=== PATIENT | male | born 1975 | race Caucasian/White ===

== ENCOUNTER 2016-06-10 14:45 | Inpatient (IN) | payer OTHER ==
[~2016-06-10] VITALS: Ht 182.9 cm; Wt 99.8 kg
[~2016-06-10 14:45] MED LIST: CARAFATE 1GM1000 MG PO; PROTONIX 40MG T40 MG PO
[2016-06-10 15:38] LABS: ABSOLUTE BASOPHIL COUNT 0 /CUMM (0.0-0.2); ABSOLUTE EOSINOPHIL COUNT 0.1 /CUMM (0.0-0.7); ABSOLUTE GRANULOCYTE CT 5.2 /CUMM (1.4-6.5); ABSOLUTE LYMPH COUNT 1.8 /CUMM (1.2-3.4); ABSOLUTE MONOCYTE COUNT 0.8 /CUMM (0.10-0.60); BASOPHIL % 0.3 % (0.0-2.0); EOSINOPHIL % 1.7 % (0-5); GRANULOCYTE % 65.3 % (42.2-75.2); HEMATOCRIT 47.1 % (42-52); MEAN CORPUSCULAR HGB 31.5 PG (27.0-31.0); MEAN CORPUSCULAR HGB CONC 34.7 G/DL (33.0-37.0); MEAN CORPUSCULAR VOLUME 90.8 FL (80.0-94.0); MEAN PLATELET VOLUME 8.4 FL (7.4-10.4); PLATELET COUNT 196 /CUMM (130-400); RBC DISTRIBUTION WIDTH 12.4 % (11.5-14.5); RED BLOOD CELL CT 5.19 /CUMM (4.70-6.10)
--- NOTE | 2016-06-10 17:19 | ED NEURO DEFICIT/STROKE ---
History of Present Illness General Chief Complaint: General Adult Stated Complaint: NUMBNESS LEGS,WAIST X 6 DAYS Source: patient Exam Limitations: no limitations Vital Signs & Intake/Output Vital Signs & Intake/Output Vital Signs Date Time Temp Pulse Resp B/P Pulse O2 O2 Flow FiO2 Ox Delivery Rate 06/13 0756 97.6 80 19 132/94 94 Room Air 06/13 0030 97.8 94 20 132/97 92 06/12 1643 98.1 120 22 148/80 92 06/12 1400 97.8 80 18 130/70 ED Intake and Output 06/13 0000 06/12 1200 Intake Total 1390 540 Output Total 300 Balance 1090 540 Intake, IV 750 Intake, Oral 640 540 Output, Urine 300 Allergies Coded Allergies: No Known Allergies (07/17/15) Triage Note: PT STATES HE IS HAVING NUMBNESS GOING FROM HIS BIG TO AND GOING UP HIS LEGS. PT STATES ITS BOTH LEGS NOW UP INTO HIS WAIST. PT STATES HE WENT TO PCP YESTERDAY. PT STATES HIS MOTHER HAD TOLU LAN Triage Nurses Notes Reviewed? yes Onset: Gradual Duration: getting worse Timing: recent history Severity: severe New Weakness: ascending HPI: Patient is a 41-year-old male with a past medical history of hyperlipidemia who presents to emergency room stating that approximates 6 weeks ago he was having complaints of upper respiratory infection symptoms in which for approximately one month history symptoms persisted he followed up with his primary care doctor 2 weeks ago was given antibiotics and symptoms have been relieved. Patient does state that 6 days ago he noted a gradual onset of right lower extremity toe paresthesia that has radiated up his right leg and then his left leg and now complains of complete numbness from his waist down to his bilateral feet. Patient was evaluated yesterday by his primary care Dr. Baumann in which blood work was sent no medications were given. Patient denies any fever chills chest pain arm pain jaw pain nausea vomiting testicular swelling or pain. Patient still is in control of his bowel and bladder and denies any incontinence episodes. Patient also denies any active pain or lower extremity pain swelling or weakness however he does state while walking it just feels "weird" Concerns that his mother had GBS syndrome (RAVIN DUMONT,STORMY) Reconcile Medications Fenofibrate Nanocrystallized (Fenofibrate) 145 MG TABLET 1 TAB PO DAILY CHOLESTEROL (Reported) Prednisone 10 MG TABLET 0 PO SI MULTIPLE SCLEROSIS 06/15/16-06/20/16 TAKE 6 TABS DAILY 06/21/16 TAKE 5 TABS DAILY 06/22/16 TAKE 4 TABS DAILY 06/23/16 TAKE 3 TABS DAILY 06/24/16 TAKE 2 TABS DAILY 06/25/16 TAKE 1 TAB DAILY THEN STOP (COTY MONTES,VAISHNAVI Horowitz) Past History Travel History Traveled to [place] past 21 day No Medical History Any Pertinent Medical History? see below for history Cardiovascular: hyperlipidemia Psychiatric: anxiety, panic attacks Surgical History Surgical History: non-contributory, N Psychosocial History What is your primary language [place] Tobacco Use: Never used ETOH Use: denies use Illicit Drug Use: denies illicit drug use Family History Hx Contributory? No (STORMY JIMENES) Review of Systems Review of Systems Constitutional: Reports: no symptoms. EENTM: Reports: no symptoms. Respiratory: Reports: no symptoms. Cardiovascular: Reports: no symptoms. GI: Reports: no symptoms. Genitourinary: Reports: no symptoms. Musculoskeletal: Reports: no symptoms. Skin: Reports: no symptoms. Neurological/Psychological: Reports: see HPI, paresthesia. Hematologic/Endocrine: Reports: no symptoms. Immunologic/Allergic: Reports: no symptoms. All Other Systems: Reviewed and Negative (STORMY JIMENES) Physical Exam Physical Exam General Appearance: no apparent distress, alert, comfortable Cranial Nerves: normal hearing, normal speech, PERRL Comments: Well-developed well-nourished person in no acute distress HEENT: Normal EENT exam, extraocular motion intact, no nystagmus. Pupils equally round and reactive to light and accommodation. Nose is atraumatic. External auditory canal and Tympanic membranes clear. Pharynx normal. No swelling or edema. Neck: Supple, no lymphadenopathy, normal range of motion without pain or tenderness Back: Nontender, no CVA tenderness. Cardiovascular: Regular rate and rhythms no murmurs rubs or gallops, normal JVP Respiratory: Chest nontender. No respiratory distress.breath sounds clear to auscultation bilaterally Abdomen: Soft, nontender nondistended, no appreciable organomegaly. Normal bowel sounds. No ascites Extremity: No edema, no calf tenderness to palpation, normal and equal pulses. Neuro: Alert oriented x3, Lower extremity-generalized decreased dermatome sensation noted 5 out of 5 resisted range of motion in all extremities noted myotomes intact of all extremities DTRs intact - hyperreflexive Skin: No appreciable rash on exposed skin, skin is warm and dry. Psych: Mood and affect is normal, memory and judgment is normal. Core Measures CVA/TIA Diagnosis: No Severe Sepsis Present: No Septic Shock Present: No (RAVIN DUMONT,STORMY) Progress Differential Diagnosis: drug intoxication, electrolyte imbalance, encephalitis, intracranial Hem., intracranial mass/tumor, meningitis, migraine CASTILLO, seizure disorder, stroke, subarachnoid Hem., vertebrobasilar insuff., TRANSVERSE MYELITIS, SPINAL ABSCESS, HERNIATED DISC OF THE LUMBAR SPINE, gbs, NEUROPATHY, MULTIPLE SCLEROSIS, NEUROMUSCULAR JUNCTION DISORDER, POLYNEUROPATHY Plan of Care: Orders Procedure Date/time Status Anticipated Discharge 06/14 UNK Active Nursing Misc 06/13 UNK Active Current Medications Sig/Jarrod Start time Last Medication Dose Stop Time Status Admin Acetaminophen 650 MG Q6P PRN 06/10 2044 AC (Tylenol) Patient currently is in no apparent distress. Patient does present with significant and concerning symptoms of worsening ascending bilateral lower extremity paresthesia however patient has intact myotomes and dermatomes at this time. Rectal tone is intact. Patient had unremarkable CT scan however patient is concerning enough that he was advised to be admitted for evaluation of his symptoms and received an MRI possible lumbar puncture and neurology consultation and frequent neurological checks. 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 DE LEON who is aware and agrees with ER disposition and plan (RAVIN DUMONT,STORMY) Diagnostic Imaging: Viewed by Me: CT Scan. Radiology Impression: SEE COMMENTS Initial ED EKG: normal p-waves, normal QRS complex, normal sinus rhythm, NORMAL SINUS RHYTHM 80 BPM Comments: PATIENT: LAURA SOLIS PRESENT AGE: 41 PATIENT ACCOUNT NO: [id number] : 73 LOCATION: [facility] ORDERING PHYSICIAN: STORMY DUMONT SERVICE DATE: 06/10/16 EXAM TYPE: CAT - CT LUMB SPINE W IV CONTRAST CT LUMBAR SPINE WITH CONTRAST CLINICAL INFORMATION: Bilateral leg paresthesias to rule out transverse myelitis. COMPARISON: None available. TECHNIQUE: A CT acquisition of the lumbar spine is obtained following the administration of 95 mL of Optiray 320 intravenous contrast. FINDINGS: 5 nonrib-bearing lumbar-type vertebral bodies. Lumbar alignment is normal. There are no acute fractures and there are no acute subluxations. Vertebral body heights are maintained. No osteolytic and no osteoblastic lesions. Disc spaces are preserved. There is mild disc calcification at L1-L2. There are no significant soft tissue findings. At L2-L3 there is a right lateral disc protrusion that may abut the extraforaminal right L2 nerve root. At L4-L5 there is a diffuse annular disc bulge with a possible superimposed shallow central disc protrusion. Suspect mild narrowing of the central canal. Moderate foraminal stenosis bilaterally. Disc may abut the traversing nerve roots, not well assessed on CT. The remaining lumbar disc contours appear normal. IMPRESSION: - CT is not diagnostic for assessing for abnormal enhancement within the spinal cord and along the cauda equina nerve roots. If clinical suspicion persists for transverse myelitis, a MRI of the spine would be recommended for further assessment. - At L4-L5 there is a diffuse annular disc bulge with a possible superimposed shallow central disc protrusion. Suspect mild narrowing of the central canal. Moderate foraminal stenosis bilaterally. Disc may abut the traversing nerve roots, not well assessed on CT. - At L2-L3 there is a right lateral disc protrusion that may abut the extraforaminal right L2 nerve root. (STORMY JIMENES) Departure Departure Disposition: STILL A PATIENT Condition: Fair Clinical Impression Primary Impression: Distal paresthesia Referrals: KENYA HAYWARD MD (PCP/Family) Departure Forms: Customer Survey General Discharge Information Admission Note Spoke With: BRYAN FRAGA MD Documentation of Exam: Documentation of any treatments & extenuating circumstances including Concerns Regarding Discharge (functional status, medication knowledge or non-compliance, living conditions, etc.) that warrant an admission rather than observation: [ Discussed patient with Dr. FRAGA who agrees with telemetry admission for concerns of worsening A sending paresthesia of the legs who requires neurology consultation, MRI, lumbar puncture, frequent neurological checks and further evaluation treatment of his concerning presentation. Outpatient treatment at this time would be medically harmful] (STORMY JIMENES) Departure Prescriptions: Current Visit Scripts Prednisone 0 PO SI #87 TAB 06/15/16-06/20/16 TAKE 6 TABS DAILY 06/21/16 TAKE 5 TABS DAILY 06/22/16 TAKE 4 TABS DAILY 06/23/16 TAKE 3 TABS DAILY 06/24/16 TAKE 2 TABS DAILY 06/25/16 TAKE 1 TAB DAILY THEN STOP PA/MINE ENVIRONMENTAL ENGINEER Co-Sign Statement Statement: ED Attending supervision documentation- [] I saw and evaluated the patient. I have also reviewed all the pertinent lab results and diagnostic results. I agree with the findings and the plan of care as documented in the PA's/MINE ENVIRONMENTAL ENGINEER's documentation. [x] I have reviewed the ED Record and agree with the PA's/MINE ENVIRONMENTAL ENGINEER's documentation. [] Additions or exceptions (if any) to the PAs/MINE ENVIRONMENTAL ENGINEER's note and plan are summarized below: [] (COTY MONTES,VAISHNAVI Horowitz)
--- NOTE | 2016-06-10 18:08 | CT SCAN REPORT ---
CT LUMBAR SPINE WITH CONTRAST CLINICAL INFORMATION: Bilateral leg paresthesias to rule out transverse myelitis. COMPARISON: None available. TECHNIQUE: A CT acquisition of the lumbar spine is obtained following the administration of 95 mL of Optiray 320 intravenous contrast. FINDINGS: 5 nonrib-bearing lumbar-type vertebral bodies. Lumbar alignment is normal. There are no acute fractures and there are no acute subluxations. Vertebral body heights are maintained. No osteolytic and no osteoblastic lesions. Disc spaces are preserved. There is mild disc calcification at L1-L2. There are no significant soft tissue findings. At L2-L3 there is a right lateral disc protrusion that may abut the extraforaminal right L2 nerve root. At L4-L5 there is a diffuse annular disc bulge with a possible superimposed shallow central disc protrusion. Suspect mild narrowing of the central canal. Moderate foraminal stenosis bilaterally. Disc may abut the traversing nerve roots, not well assessed on CT. The remaining lumbar disc contours appear normal. IMPRESSION: - CT is not diagnostic for assessing for abnormal enhancement within the spinal cord and along the cauda equina nerve roots. If clinical suspicion persists for transverse myelitis, a MRI of the spine would be recommended for further assessment. - At L4-L5 there is a diffuse annular disc bulge with a possible superimposed shallow central disc protrusion. Suspect mild narrowing of the central canal. Moderate foraminal stenosis bilaterally. Disc may abut the traversing nerve roots, not well assessed on CT. - At L2-L3 there is a right lateral disc protrusion that may abut the extraforaminal right L2 nerve root.
[2016-06-10] MEDS ORDERED: FENOFIBRATE145 M1 PO (19:31)
[2016-06-10 22:05] VITALS: BP 130/80
--- NOTE | 2016-06-10 22:16 | History & Physical ---
BRITTNI MONTES,JEFF 06/10/16 2215: General Information and HPI MD Statement: I have seen and personally examined LAURA SOLIS and documented this H&P. The patient is a 41 year old M who presented with a patient stated chief complaint of [ascending paresthesias]. Source of Information: patient, family Exam Limitations: no limitations History of Present Illness: This is a 41-year-old gentleman with past medical history of hyperlipidemia, and anxiety, who comes with CC of progressive and ascending paresthesias. Patient states that around 6 weeks ago he experienced symptoms of an upper respiratory infection, the symptoms included body aches, rhinorrhea, cough, congestion. Symptoms lasted for almost 1 month until patient went to see the PCP about 2 weeks ago. At that time he was prescribed a regimen of Augmentin which patient completed. Patient experienced symptoms of diarrhea while he was on the antibiotic. Now, for the past 6 days, patient has noted "pins and needles," tingling and a subjective decreased sensation in his lower extremities. He states that symptoms started in his right great toe and radiated up his right leg subsequently, symptoms started in his left leg and radiated up. Now patient has paresthesias and an altered sensation of touch, waist down. This includes saddle paresthesia. He states that he is able to urinate and defecate normally, however, he is unable to feel the sensation of both actions. Patient had a bowel movement before he came to the ED. Patient is able to attain and maintain erections. Other symptoms noted was an issue with balance. He states that if he does not visualize where he is walking he will fall. Additionally, he states that he is unable to sleep because of the paresthesias. He denies any loss of bowel or bladder control, nausea, vomiting, chest pain, myalgias, arthralgias, dizziness, headache, change in vision, loss of consciousness, fall, or shortness of breath. His partner in the room denies noticing any slurring of speech, facial droop, hemiparesis, or loss of consciousness. He endorses difficulty with walking, tingling, paresthesias, in his lower extremity and an inability to tell if he is urinating or defecating. He does have history of tick bite treated with doxycycline. However, he has never been diagnosed with Lyme disease. He did not get his flu shot this year. Denies any unusual food ingestions. Only sick contact is his daughter who has URI with an ear infection diagnosed on 06/04/2016. The patient denies any smoking , drinking, or IV drug use. However, he does use chewing tobacco. 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 His mother has a history of unknown cancer and Guillain Tiffin sydnrome. Father has unknown history as he committed suicide at a young age. Allergies/Medications Allergies: Coded Allergies: No Known Allergies (07/17/15) Home Med list Fenofibrate Nanocrystallized (Fenofibrate) 145 MG TABLET 1 TAB PO DAILY CHOLESTEROL (Reported) Compliance With Home Meds: UNKNOWN Past History Travel History Traveled to [facility] past 21 day No Medical History Cardiovascular: hyperlipidemia Psychiatric: anxiety, panic attacks Surgical History Surgical History: non-contributory, thora s/p PNA as a child Past Family/Social History Psychosocial History Primary Language: Setswana Smoking Status: Never Smoked ETOH Use: denies use Illicit Drug Use: denies illicit drug use Functional Ability ADLs Independent: dressing, eating, toileting, bathing. Ambulation: independent, cane, walker, non-ambulatory IADLs Independent: shopping, housework, finances, food prep, telephone, transportation , medication admin. Employment History Employment Employed Review of Systems Review of Systems Constitutional: Reports: weakness. Denies: chills, diaphoresis, fever, malaise. EENTM: Denies: blurred vision, double vision, visual changes, eye pain, ear discharge, ear pain, hearing changes, nasal congestion, throat pain, mouth pain, tooth pain. Cardiovascular: Denies: chest pain, edema, orthopena, palpitations, peripheral edema. Respiratory: Denies: cough, orthopnea, short of breath, sputum production, wheezing. GI: Denies: abdominal pain, bloating, constipation, diarrhea, distention, melena, nausea, bloody stool, changes in stool, vomiting. Genitourinary: Denies: discharge, dysuria, frequency, hematuria, hesitation, nocturia, pain, urgency. Musculoskeletal: Denies: back pain, gout, joint pain, joint swelling, muscle pain, muscle stiffness, neck pain. Skin: Denies: change in skin color, change in hair/nails, erythema, jaundice, lesions, lumps, rash. Neurological/Psychological: Reports: anxiety, numbness, paresthesia, tingling. Denies: ataxia, cognitive dysfunction, confusion, depressed, dementia, emotional problems, headache, pre- existing deficit, petit mal seizures, tremors, tonic-clonic seizures, unable to move lower ext, unable to move upper ext, weakness. Hematologic/Endocrine: Denies: bruising, bleeding, polyuria. Exam & Diagnostic Data Last 24 Hrs of Vital Signs/I&O Vital Signs Date Time Temp Pulse Resp B/P Pulse O2 O2 Flow FiO2 Ox Delivery Rate 06/10 2205 98.5 86 20 130/80 94 06/10 1942 97.7 87 18 157/78 96 Room Air 06/10 1652 98.2 88 18 131/74 98 06/10 1455 97.1 105 16 139/96 97 Room Air Intake & Output 06/10 1600 06/10 0800 06/10 0000 Intake Total Output Total Balance Patient 106.594 kg Weight Physical Exam General Appearance Alert, Oriented X3, Cooperative, No Acute Distress Skin No Rashes, No Breakdown, No Significant Lesion HEENT Atraumatic, PERRLA, EOMI, Mucous Membr. moist/pink, CN 2-12 WNL Neck Supple, No LAD Cardiovascular Regular Rate, Normal S1, Normal S2, No Murmurs, Gallops, Rubs Lungs Clear to Auscultation, Normal Air Movement Abdomen Normal Bowel Sounds, Soft, No Tenderness, No Masses Neurological Normal Speech, Strength at 5/5 X4 Ext, Normal Tone, Sensation Intact, Cranial Nerves 3-12 NL, Hyper-reflexia 2+ in LE Nml reflexes 1+ in UE Steppage gait when ambulates + Romberg; deviates to right Strength normal in all extremities Sensation normal in all extremeties Passive ROM nml in all extremeties Active ROM nml in all extremeites Temp discrimination in tact Pain discrimination in tact Rectal tone normal CN 2-12 WNL; no facial droop, no deviation of uvula No cerebellar signs Last 24 Hrs of Labs/Tanmay: Laboratory Tests 06/10/16 1525: Anion Gap 9, Estimated GFR > 60, BUN/Creatinine Ratio 10.9, Glucose 93, Calcium 9.6, Total Bilirubin 0.7, AST 30, ALT 46, Alkaline Phosphatase 58, Creatine Kinase 72, Total Protein 7.2, Albumin 4.3, Globulin 2.9, Albumin/Globulin Ratio 1.5, CBC w Diff NO MAN DIFF REQ, RBC 5.19, MCV 90.8, MCH 31.5 H, RDW 12.4, MPV 8.4, Gran % 65.3, Lymphocytes % 22.2, Monocytes % 10.5 H, Eosinophils % 1.7, Basophils % 0.3, Absolute Granulocytes 5.2, Absolute Lymphocytes 1.8, Absolute Monocytes 0.8 H, Absolute Eosinophils 0.1, Absolute Basophils 0, PUBS MCHC 34.7 , Lyme Disease Antibody Pending Assessment/Plan Assessment: This is a 41-year-old male with past medical history of anxiety and hyperlipidemia who presents with a chief complaint of a ascending paresthesias that started about a week ago and have continued to worsen; in addition, he has no sensation when he urinates or defecates. He denies any previous neurologic history,however there is family history of GBS in his mother. At the present time there is no clear etiology for patient's unusual constellation of symptoms. Differential includes: Guillian Tiffin, transverse myelitis, Multiple sclerosis, myasthenia gravis, chronic inflammation demyelinating neuropathy, stroke, Lyme disease, cord compression, or degenerative disk disease. We will admit him to telemetry for further workup. PLAN Ascending paresthesias: Patient has a family history of GBS and he did have a preceding seemingly viral illness in the past month. However, this be a very unusual presentation of Guillain Pandya. Patient does not have any motor deficits and his sensation is largely intact as well. While pt endorses a decreased subjective sensation to touch on physical exam he is capable of discriminating temperature and touch in both LE. His major complaint is paresthesias and decreased sensation on urinating and defecating. Additionally, he is hyperreflexive, not hypo. Given gait ataxia and paresthesias there is concern for some form of dosal cord involvement. Differential could include MS, tabes dorsalis, subacute combined degeneration or epidural tumors. Since the involved dermatomes are T10 and below it seems to be localized to the fasciculus gracilus. His head CT showed no acute intracranial abnormalities. A lumbar CT showed diffuse annular disc bulge with possible superimposed central disc protrusion at L4-L5 and mild narrowing of the canal. At L2-L3 there is a lateral disc protrusion that may "abut the extraforaminal right L2 nerve." It would be unusual for a bulging disc to cause purely sensory deficits that were bilateral and ascending. * Q1 neuro check * MRI w/WO RAFA of head,, cerivcal lumbar and sacral spine. * Neuro consult * At this time, per neurology, steroids are not indicated for this patient * LP deferred at this time * Echocardiogram * Carotid dopplers * Monitor on telemetry * RPR * HIV * B12 Hyperlipidemia: Con't fibrate Hx anxiety/depression: Denies any symptoms currently. No SI/HI. FULL CODE REGULAR DIET CHEMICAL DVT PPX As Ranked By This Provider Problem List: 1. Distal paresthesia Core Measures/Miscellaneous Acute Coronary Syndrome ACS Diagnosis: No Cerebrovascular Accident CVA/TIA Diagnosis: No Congestive Heart Failure CHF Diagnosis: No Venous Thromboembolism VTE Risk Factors: Acute medical illness, Age > 40 VTE Prophylaxis Ordered Inpt: Pharm- Lovenox No Mech VTE prophylaxis d/t: VTE low risk No VTE Pharm Prophylaxis d/t: VTE low risk VTE Diagnosis: No VTE Type: NONE VTE Confirmed by (Test): NONE Severe Sepsis Severe Sepsis Present: No Septic Shock Septic Shock Present: No Miscellaneous Documentation Attending Case Discussed With: BRYAN FRAGA MD Primary Care Physician: KENYA HAYWARD MD Patient sees these Specialists none Level of Patient Care: Telemetry JESS MANUEL MD 06/10/16 0707: Resident Review Statement Resident Statement: examined this patient, discussed with international relations professor Other Findings: This is a 41-year-old gentleman with a medical history significant only for hyperlipidemia currently on meds, presents to the emergency room with a six-day history of bilateral lower extremity paresthesias and numbness from his toes all the way up to his hips bilaterally. Patient states that around [place] time he had upper respiratory infection and was reluctant to see his primary care physician until last month. He saw his PCP in the middle of April and received augmented for a URI. He completed the course of Augmentin and also noted a couple of bouts of diarrhea while on the antibiotics. His symptoms were namely cough, congestion, listlessness and fatigue. He successfully completed his antibiotics and felt well until one week ago. About 6 days ago he started to notice tingling, numbness and decreased sensation in his right toe and foot which over the course of the last few days started to move up to his hips and also started on his left foot again towards the left hip. At present he complains that he has bilateral lower extremity tingling and numbness and also numbness and tingling around his penis, anus and hips. He states that he has good control of his bladder and his bowel however when he does urinate or defecate he cannot tell if he is actively urinating or defecating until he physically looks in the toilet bowl. Also states that it's difficult for him to ambulate and his gait is not steady and he has a preference of gait leaning towards the right, states that he has to actively look at his feet and lift them up in order to ambulate states that his feet stick to the floor and they drag a little bit. Apart from the above-mentioned symptoms at present he denies any chest pain, shortness of breath, nausea, vomiting, diarrhea, fevers, chills, his only sick contact was his 5-year-old daughter but that was a couple weeks ago. Of note, he does state that he saw his PCP a couple of days ago who thought that his symptoms were mostly related to musculoskeletal problems. Past medical history- hyperlipidemia currently on fenofibrate, anxiety and depression without any current symptoms, not on any meds Social history- no history of cigarette smoking, denies any illicit drug use, admits to social alcohol use, does use chewing tobacco every day with 2 kids, works in [employer], no psychosocial stressors either at work or home Family history- mother had a history of Guillain-Pandya syndrome, father is after a suicidal attempt, he has 1 younger sister who is in good health Surgical history- tympanic membrane tube placement when he was a kid EKG on admission- rate 80, AL 168, QRS 78, QTC 420, sinus rhythm CAT scan of the head- shows no acute intracranial abnormality CT lumbar spine- possible central disc perfusion at the L4-L5 level, foraminal stenosis bilaterally, likely this protrusion at L2-L3 Labs- CBC, BEP or totally unremarkable; Lyme titers pending Physical exam- Vital signs are stable Cardiovascular, lung, abdominal exam is unremarkable Neuro exam- He is alert and oriented to time place and person, no acute distress Cranial nerves II through XII are intact Power is 5 out of 5 in flexors, extensors, abductors, adductors and all 4 extremities Reflexes- 1+ in bilateral upper extremities; 2+ in bilateral lower extremities No cerebellar signs, [id number] testing is intact, visual marti are intact, visual acuity is intact Sensation in bilateral upper extremities intact, sensation in bilateral lower extremities intact however very mildly diminished Normal rectal sphincter tone, (he is guaiac negative) Positive Romberg to the right Moderately stable gait, stepping gait noted bilaterally, with right-sided preference Assessment- 41-year-old gentleman that presents with the above-mentioned symptoms of 6 days duration 6 weeks after the initial URI, with alleviation of his URI-like symptoms, significant family history of Guillain-Pandya syndrome and his mother, now presenting with bilateral lower extremity paresthesias and tingling and numbness from his toes all the way up to his hips; without any other motor deficits. His neurological exam goes against Guillain-Pandya symptoms namely he is hyperreflexive and there is no motor deficits. Some differentials here could include sensory neuropathy, possibly secondary to disc protrusion which further needs to be investigated severe MRI, cord compression has been ruled out, Guillain-Pandya variant, transverse myelitis, MS, etc. 1. Bilateral lower extremity paresthesias, tingling and numbness 2. Recent URI 3. History of hyperlipidemia 4. Remote history of anxiety and depression, not on any meds, has see counseling before, currently denies any suicidal or homicidal ideations 5. Family history significant for Guillain-Pandya syndrome and his mother Plan- Telemetry admit Every 1 hr neurochecks Vitals per protocol We'll get MRI with and without gadolinium of his head, cervical spine, thoracic, lumbar and sacral spine Neurology consult Echocardiogram I spoke with Dr. Harding who stated that at present there is no indication for steroids or a lumbar puncture Continue his fibrate Regular diet Pain pathway Subcutaneous heparin for DVT prophylaxis Full code PHILLY MONTES, [facility] 06/11/16 0253: Attending MD Review Statement Attending Statement Attending MD Statement: examined this patient, discuss w/resident/PA/SM[employer] PRODUCTS ASSEMBLER, agreed w/resident/PA/[employer]ODU[employer] ASSEMBLER Attending Assessment/Plan: 41 yo M with h/o HLD, tick bites treated empirically with Doxy but no definitive diagnosis of Lyme, and family h/o GBS in his mother, is here with 6-day h/o b/l LE ascending paresthesias upto his groin. This includes tingling, numbness and pins-needles sensation that started on right big toe up the entire leg, followed by left toes to leg, upto the hip-belt line including around his anus and penis. He has the urge to urinate or defecate but cannot feel the sensation when he is actually doing it unless he sees it. No incontinence. He last voided prior to coming to ER. Similarly, he walks with an unsteady gait but cannot feel the ground unless he actually looks at the floor. He feels he is dragging his foot. No vision or hearing changes. No headache or dizziness. No facial or oculomotor weakness. No dysphagia or respiratory distress. No such similar previous events. He reports URI symptoms 6 weeks ago, for which he saw his PCP 4 weeks later. He was prescribed Augmentin that he completed, but had diarrhea during that duration. VSS. Neuro exam: Speech clear, uvula/tongue midline, cranial nerves and visual marti intact, no pronator drift, power 5/5 all extremities, sensation intact in both UE and LE (minimally diminished), sensation intact around anus and penis/ testicles. Position sense intact. Hyper-reflexia LE. Clonus not checked. Plantars downgoing. Finger-nose testing intact. Romberg's test positive with swaying to the right. High stepping gait ++. Rectal tone intact. Labs unremarkable. Lyme titer pending. Lumbar spine CT: L4-5 disc bulge with central disc protrusion, mild narrowing of central canal, L2-3 right lateral disc protrusion. Head CT neg. EKG: SR. 1. Ascending paresthesias in this young patient with family h/o GBS, with recent preceding URI symptoms neuro exam does not support GBS (no motor weakness, hyper-reflexia) ?variant of GBS although again low likelihood. Multiple sclerosis, transverse myelitis, spinal disc herniation are other possibilities. Tele admit, neurochecks, MRI w/wo RAFA davila spine, lumbar puncture, Neuro consult, Echo.Lyme titer pending. Check HbA1c, B12, HIV and RPR for syphillis. DVT ppx Alps, until LP done. Full code.
--- NOTE | 2016-06-10 22:20 | CT SCAN REPORT ---
EXAMINATION: CT HEAD WITHOUT CONTRAST CLINICAL INFORMATION: Subacute bilateral lower extremity weakness. Family history of Guillain Hamburg syndrome. Evaluate for acute stroke. COMPARISON: None. TECHNIQUE: Contiguous axial imaging was performed from the skull base to vertex without intravenous administration of contrast. DLP: 529 mGy-cm FINDINGS: No acute intracranial abnormality. No acute intracranial hemorrhage, mass or mass effect or abnormal extra-axial fluid collections. The density within the dural venous sinuses is within normal limits. The ventricles are normal in size, without hydrocephalus. There are no focal areas of hypoattenuation within a vascular distribution to suggest acute transcortical ischemia. The basilar cisterns are patent. No acute calvarial abnormality is identified. Soft tissues appear unremarkable. The imaged paranasal sinuses and mastoid air cells are well aerated. IMPRESSION: No acute intracranial abnormality. This critical result was discussed with Dr. Waller at 10:10 PM on 06/10/2016 and it was ascertained that the content and urgency of the report was understood at the time of direct communication.
--- NOTE | 2016-06-10 23:04 | Admission Certification ---
Admission Certification Certification Statement - As attending physician, I certify that at the time of - admission, based on clinical presentation, severity of - symptoms, need for further diagnostic testing and - therapeutic interventions, and risk of adverse outcomes - without in-hospital treatment, in my clinical assessment, - this patient requires an acute hospital stay for a minimum - of two nights or longer. I have also considered psychsocial - factors such as support system, advanced age, financial - issues, cognitive issues, and failed out-patient treatments, - past re-admission history, safety of patient, and lack of - compliance as applicable. Specific rationale supporting this admission is: Ascending paresthesias requires neurological work up including MRI and LP.
--- NOTE | 2016-06-11 07:01 | PN- Housestaff ---
See Addendum Subjective Follow-up For: Ascending paresthesias without motor weakness Recent URI HLD Family history of Guillan-[place] syndrome Tele-Events Since Last Visit: NSR HR 60-80, PVCs with no overnight events. Subjective: Patient seen and examined at bedside this AM. He endorses heightening of the paresthesias since admission. Now, whenever his lower extremities are touched, he jumps and has a profound sensitivity to it. He currently denies fever, chills , muscular weakness, respiratory status changes or loss of bowel/bladder function (though he cannot feel when he defecates and his urine stream is less strong). He also continues to endorse difficulty in ambulation 2/2 paresthesias. Review of Systems Constitutional: Denies: chills, fever, weakness. EENTM: Denies: blurred vision, visual changes, hearing changes, nasal congestion. Cardiovascular: Denies: chest pain, palpitations, syncope. Respiratory: Denies: cough, short of breath, wheezing. Gastrointestinal: Denies: abdominal pain, bloating, constipation, diarrhea, nausea, bloody stool, vomiting. Genitourinary: Reports: hesitation. Denies: dysuria, pain. Musculoskeletal: Denies: back pain, muscle pain. Skin: Denies: rash. Neurological/Psychological: Reports: ataxia, numbness, paresthesia, tingling. Denies: headache, pre- existing deficit, tremors. Hematologic/Endocrine: Denies: bruising, bleeding. Immunologic/Allergic: Denies: splenectomy. Objective Last 24 Hrs of Vital Signs/I&O Vital Signs Date Time Temp Pulse Resp B/P Pulse O2 O2 Flow FiO2 Ox Delivery Rate 06/11 08 97.7 73 20 120/80 95 Room Air 06/10 2205 98.5 86 20 130/80 94 06/10 1942 97.7 87 18 157/78 96 Room Air 06/10 1652 98.2 88 18 131/74 98 06/10 1455 97.1 105 16 139/96 97 Room Air Intake & Output 06/11 1600 06/11 0800 06/11 0000 Intake Total 650 Output Total Balance 650 Intake, Oral 650 Patient 220 lb Weight Physical Exam General Appearance: Alert, Oriented X3, Cooperative, No Acute Distress Skin: No Rashes, No Significant Lesion HEENT: Atraumatic, PERRLA, EOMI, Mucous Membr. moist/pink Neck: Supple, +2 Carotid Pulse wo Bruit Lymphatic: Cervical nl Cardiovascular: Regular Rate, Normal S1, Normal S2, No Murmurs Lungs: Clear to Auscultation, Normal Air Movement Abdomen: Normal Bowel Sounds, Soft, No Tenderness, No Hepatospenomegaly, No Masses Neurological: Normal Speech, Strength at 5/5 X4 Ext, Normal Tone, Rectal tone checked in the ED and normal. Sensation intact around anus and penis/testicles as tested in ED., Plantars again downgoing today., + rombergs. Extremities: No Clubbing, No Cyanosis, No Edema Vascular: Pulses Symmetrical Current Medications: Current Medications Sig/Ajrrod Start time Last Medication Dose Route Stop Time Status Admin Acetaminophen 650 MG Q6P PRN 06/10 2044 AC PO Fenofibrate 145 MG DAILY 06/11 1000 AC 06/11 PO 0842 Heparin Sodium 5,000 UNIT Q8 06/10 2200 DC 06/10 (Porcine) SC 2250 Ibuprofen 600 MG Q6P PRN 06/10 2044 AC 06/11 PO 0848 Oxycodone/ 2 TAB Q6P PRN 06/10 2044 AC Acetaminophen PO Last 24 Hrs of Lab/Tanmay Results Last 24 Hrs of Labs/Mics: Laboratory Tests 06/10/16 1525: RPR Titer/FTA Pending, Lyme Disease Antibody Pending 06/10/16 1525: Anion Gap 9, Estimated GFR > 60, BUN/Creatinine Ratio 10.9, Glucose 93, Calcium 9.6, Total Bilirubin 0.7, AST 30, ALT 46, Alkaline Phosphatase 58, Creatine Kinase 72, Total Protein 7.2, Albumin 4.3, Globulin 2.9, Albumin/Globulin Ratio 1.5, Vitamin B12 458, CBC w Diff NO MAN DIFF REQ, RBC 5.19, MCV 90.8, MCH 31.5 H, RDW 12.4, MPV 8.4, Gran % 65.3, Lymphocytes % 22.2, Monocytes % 10.5 H, Eosinophils % 1.7, Basophils % 0.3, Absolute Granulocytes 5.2, Absolute Lymphocytes 1.8, Absolute Monocytes 0.8 H, Absolute Eosinophils 0.1, Absolute Basophils 0, PUBS MCHC 34.7, HIV 1&2 Ab Western Blot NONREACTIVE 02/21/17 1522: Hemoglobin A1c Pending Assessment/Plan Assessment: Mr. uLgo is a pleasant 41 year old male with PMH HLD and anxiety who presented with a 6 day course of progressive lower extremity paresthesias. About 6 weeks ago, patient experienced an upper respiratory infection with cough and congestion for which he received augmentin. He then noted that 6 days ago, his right big toe became numb. This numbness slowly ascended to his whole right lower extremity and included his left lower extremity also. On time of presentation, patient admitted to allodynia with "pins and needles". He denied any loss of bowel or bladder control, nausea, vomiting, chest pain, myalgias, arthralgias, dizziness, headache, change in vision, loss of consciousness, fall, or shortness of breath. He did admit to inability to feel the passage of a bowel movement, weak urinary stream and difficulty ambulating secondary to paresthesias. In the ED: Vital signs showed T 97.1, HR 105, RR 16, BP 139/96 and O2 saturation of 97% on RA. Labs showed a normal CBC and unremarkable BEP. A head CT was done that showed no acute intracranial abnormalities. A lumbar CT showed diffuse annular disc bulge with possible superimposed central disc protrusion at L4-L5 and mild narrowing of the canal. At L2-L3, there is a lateral disc protrusion that may "abut the extraforaminal right L2 nerve." Patient is admitted to the telemetry floor and the following is the management: 1. Ascending paresthesias with allodynia * Head CT shows no acute intracranial pathology, no noted motor deficits appreciated * Head MRI done today suggestive of demyelinating disease that can be seen in multiple sclerosis (multiple enhancing subcentimeter lesions in parenchyma) as well as ovid T7 enhanding lesion * RPR and HIV testing negative, Lyme disease Ab/HgA1C pending, f/u results * Continue neurochecks, vital per protocol * Neurology consult with Dr. Motley placed and appreciated * Neuroimaging findings discussed with Dr. Motley and he suggested we may start prednisone 60 mg PO daily x 7 days follows by a quick taper for hastening of symptomatic improvement * Gabapentin 100 mg TID added to his regimen for paresthesias * Pain management with tylenol for mild, motrin for moderate and percocet for severe pain * Patient will require close clinical follow up with Dr. Motley for continued management of MS * PT consult placed due to paresthesias resulting in difficulty ambulating 2. History of HLD * Continue fenofibrate 145 mg PO daily FULL CODE DVTP: ALPS Regular diet Mild to severe pain pathway Problem List: 1. Distal paresthesia 2. Demyelinating changes in brain Pain Ratin Pain Location: n/a Pain Goal: Remain pain free Pain Plan: Mild to severe pain pathway. Tomorrow's Labs & Rationales: None.
[2016-06-11 08:00] VITALS: BP 120/80
--- NOTE | 2016-06-11 13:13 | Cons- Neurology ---
General Information and HPI Consulting Request Date of Consult: 06/11/16 Requested By: ARACELIS FLORES M.D History of Present Illness: 41-year-old male in usual state of health until approximately 1 week ago when he began to note paresthesias ascending from the feet toward the sub-umbilical region bilaterally. He reports having had an upper respiratory infection in April, ultimately treated with antibiotics which he completed several weeks back. There has been no rash or trauma or significant ataxia although he sometimes feels mildly imbalanced. He has been continent of urine however has been aware of some subjective inability to realize when he is actually passing his urine. The patient denies any history of transient neurological events in the past. CAT scan of the brain on admission was unrevealing. A lumbar CT was nondiagnostic. Allergies/Medications Allergies: Coded Allergies: No Known Allergies (07/17/15) Home Med List: Fenofibrate Nanocrystallized (Fenofibrate) 145 MG TABLET 1 TAB PO DAILY CHOLESTEROL (Reported) Review of Systems Review of Systems: Negative for fever, chills, rash, diplopia, dysarthria, dysphagia, vomiting, shortness of breath, jaundice, joint inflammation, bleeding disturbance or júnior ataxia. Notable for some objective urinary symptoms and paresthesias as above Past History Travel History Traveled to [place] past 21 day No Medical History Blood Transfusion Hx: No Neurological: NONE EENT: NONE Cardiovascular: hyperlipidemia Respiratory: NONE Gastrointestinal: NONE Hepatic: NONE Renal: NONE Musculoskeletal: NONE Psychiatric: anxiety, panic attacks Endocrine: NONE Blood Disorders: NONE Cancer(s): NONE DATA MINER/Reproductive: NONE Surgical History Surgical History: non-contributory, thora s/p PNA as a child Psychosocial History Where Do You Live? Home Services at Home: None Primary Language: Hebrew Smoking Status: Never Smoked ETOH Use: denies use Illicit Drug Use: denies illicit drug use Functional Ability ADLs Independent: dressing, eating, toileting, bathing. Ambulation: independent, cane, walker, non-ambulatory IADLs Independent: shopping, housework, finances, food prep, telephone, transportation , medication admin. Employment History Employment: Employed Exam & Diagnostic Data Vital Signs and I&O Vital Signs Date Time Temp Pulse Resp B/P Pulse O2 O2 Flow FiO2 Ox Delivery Rate 06/11 0800 97.7 73 20 120/80 95 Room Air 06/10 2205 98.5 86 20 130/80 94 06/10 1942 97.7 87 18 157/78 96 Room Air 06/10 1652 98.2 88 18 131/74 98 06/10 1455 97.1 105 16 139/96 97 Room Air Intake & Output 06/11 1600 06/11 0800 06/11 0000 Intake Total 650 Output Total Balance 650 Intake, Oral 650 Patient 220 lb Weight Pleasant middle-aged gentleman in no acute distress. Higher cortical function was intact. Speech was fluent. Pupils were equal and reactive. Extraocular movements were full. Facial strength and sensation was intact. Hearing was normal. Tongue was midline; there was no dysarthria. The motor examination showed normal tone, bulk and strength throughout. Deep tendon reflexes were 2+ in the upper extremities and at the ankles. Patellar reflexes were 3+ bilaterally. There was no ankle clonus. Plantar responses were flexor. Sensory examination was normal to pinprick and joint position. There was diminished distal vibratory sensation in the feet. No júnior sensory level was appreciated. The patient was able to ambulate independently with a narrow-based gait. Assessment/Plan Assessment: Patient presents with a subacute history of paresthesias affecting the lower extremities bilaterally, both proximal and distal. Examination is notable only for mild hyperreflexia at the knees however there is no evidence of sensory level Babinski signs or ankle clonus. Differential diagnosis would include a transverse myelitis or initial presentation of demyelinating disease. There are no lower motor neuron findings which would implicate Guillain-Pandya syndrome or a polyradiculoneuropathy. Recommendations: The patient should have MRI of the complete spine, with and without contrast. Should this be nondiagnostic, he should also have MRI of the brain with and without contrast. He should be briefly evaluated by physical therapy although I trust that he will not need any long-term assistance. Pending results of his imaging, we may be able to direct him further. I would withhold lumbar puncture at this time however this is to be considered should his presentation remain unclear and symptoms do not resolve. Please feel free to call with any further questions. Consult Acknowledgment - Thank you for your consult request.
--- NOTE | 2016-06-11 13:32 | MRI REPORT ---
EXAMINATION: MR BRAIN WITHOUT AND WITH CONTRAST MR CERVICAL SPINE WITHOUT AND WITH CONTRAST MR THORACIC SPINE WITHOUT AND WITH CONTRAST MR LUMBAR SPINE WITHOUT AND WITH CONTRAST CLINICAL INFORMATION: Bilateral lower extremity numbness and paresthesias. Rule out cord compression. Question stroke versus demyelinating disease. COMPARISON: None TECHNIQUE: MRI of the brain, cervical spine, thoracic spine, and lumbar spine was obtained using routine sequences before and after the intravenous administration of 10 mL of Gadavist. FINDINGS: BRAIN: There are scattered T2 hyperintense lesions in the centrum semiovale, deep, and periventricular white matter of both hemispheres. On postcontrast imaging, several white matter lesions demonstrate nodular enhancement. A larger flame-shaped 2 x 1.2 cm lesion on the T2 FLAIR acquisition demonstrates ring enhancement, measuring 1 x 0.7 cm in size. There are approximately 8-9 enhancing white matter lesions. The corpus callosum appears normal. The brainstem and cerebellum are normal in appearance. The gradient refocused acquisition is normal. No acute ischemic changes are present on the diffusion-weighted acquisition. Aforementioned T2 bright lesions demonstrate shine-through phenomenon without restricted diffusion. There are no extra-axial fluid collections. The craniovertebral junction and marrow signal are normal. The major intracranial flow-voids at the level of the [place] are preserved. There is no abnormal mass effect or midline shift. There is a small retention cyst in the right maxillary sinus. Mild mucosal thickening noted elsewhere in the paranasal sinuses. There is a [id number] amount of fluid in the right mastoid air cells and right middle ear cavity. CERVICAL SPINE: No cervical cord lesions are identified. There is no syrinx. No intradural extramedullary or epidural soft tissue abnormality is seen. The marrow signal is fairly homogeneous. There is mild disc space narrowing with endplate spurring at the C6-C7 level. No pathologic intramedullary or leptomeningeal enhancement seen. The paraspinal soft tissues are normal. Left-sided uncovertebral joint spurring is noted at C2-C3 with very mild left foraminal encroachment. There is a mild disc bulge at C5-C6 with minimal impression upon the ventral thecal sac. At the C6-C7 level, a disc-osteophyte complex flattens the ventral thecal sac and contributes to moderate left foraminal narrowing. There is no central canal stenosis. THORACIC SPINE: At the T7 level, there is an ovoid lesion spanning the length of the vertebral body within the central aspect of the cord which measures 2 cm CC by 0.5 x 0.5 cm in size in the axial plane. The lesion demonstrates a mild amount of enhancement on postcontrast imaging as well. No additional cord lesions are identified. There is no syrinx. There is no abnormal leptomeningeal enhancement. The discs are well hydrated. There are no disc protrusions. The central canal and neural foramina are widely patent. LUMBAR SPINE: The marrow signal is homogeneous. The discs are well hydrated. There are no disc protrusions. The central canal is widely patent. The conus tip is normal. The cauda equina nerve roots are unremarkable. There is no pathologic leptomeningeal enhancement on postcontrast imaging. There is a small fatty filum present. The paraspinal soft tissues are normal. At the L3-L4 level, there is a generalized disc bulge and right foraminal disc protrusion contributing to mild foraminal encroachment. A small left foraminal disc protrusion and endplate spurring are visible at the L5-S1 level. The S1 vertebra is transitional and partially lumbarized. IMPRESSION: Imaging findings are most indicative for demyelinating disease as can be seen in the setting of multiple sclerosis. Multiple enhancing subcentimeter lesions in the brain parenchyma. Mildly enhancing ovoid lesion within the midthoracic cord at the T7 level. [id number] spondylosis at C6-C7 with moderate left foraminal narrowing. No significant thoracic disc disease. Focal right foraminal disc protrusion at L3-L4 with mild encroachment. This critical result was discussed with Dr. Inman at 1:12 PM on 06/11/2016 and it was ascertained that the content and urgency of the report was understood at the time of direct communication.
[2016-06-11] MEDS ORDERED: PREDNISONE10 M2 PO (15:06)
--- NOTE | 2016-06-11 15:10 | Patient Discharge Instructions ---
Discharge Instructions General Discharge Information You were seen/treated for: Multiple sclerosis Special Instructions: Please follow up with Dr. David within 7 days of discharge for continued care. Please take all medications as directed. Please follow up with your PCP within 1 week of discharge. Please let your PCP know you need your Vitamin D levels rechecked in about 4 weeks and he should follow up on the lab results. Diet Recommended Diet: Heart Healthy Activity Activity Self Limited: Yes Acute Coronary Syndrome Inclusion Criteria At DC or during hospital stay patient has or had the following: ACS DIAGNOSIS No Discharge Core Measures Meds if any: Prescribed or Continued at Discharge Meds if any: NOT Prescribed or Continued at Discharge Congestive Heart Failure Inclusion Criteria At DC or during hospital stay patient has or had the following: CHF DIAGNOSIS No Discharge Core Measures Meds if any: Prescribed or Continued at Discharge Meds if any: NOT Prescribed or Continued at Discharge Cerebrovascular accident Inclusion Criteria At DC or during hospital stay patient has or had the following: CVA/TIA Diagnosis No Discharge Core Measures Meds if any: Prescribed or Continued at Discharge Meds if any: NOT Prescribed or Continued at Discharge Venous thromboembolism Inclusion Criteria VTE Diagnosis No VTE Type NONE VTE Confirmed by (Test) NONE Discharge Core Measures - Per Current guidelines, there needs to be overlap - treatment for the first 5 days of Warfarin therapy. - If discharged on Warfarin prior to 5 days of - overlap therapy, the patient will need to be - assessed for post discharge needs including - *Post discharge parental anticoagulation - *Warfarin and/or parental anticoagulation education - *Follow up date to check INR post discharge At least 5 days overlap therapy as Inpatient No Meds if any: Prescribed or Continued at Discharge Note: Overlap Therapy is Warfarin and Anticoagulant Meds if any: NOT Prescribed or Continued at Discharge
[2016-06-11] MEDS ORDERED: PANTOPRAZOLE SO40 M1 PO (15:22)
[2016-06-11 16:37] VITALS: BP 132/90
--- NOTE | 2016-06-12 06:41 | PN- Housestaff ---
See Addendum Subjective Follow-up For: Multiple sclerosis Lower extremity paresthesias Subjective: Patient seen and examined at bedside this AM. He continues to endorse bilateral lower extremity paresthesias now with feet cramping. Patient is not amenale to oral steroids and wants to pursue a course of IV steroids. Dr. Motley, neurology, was consulted again in regards to Mr. Lugo's case and he again suggested oral prednisone as the treatment of choice for this patient. We discussed with him that both the patient and the family do not want oral and only want IV steroids for his MS and Dr. Motley suggested that if this is the case and the risks/ benefits of high dose IV steroids are discussed with the patient, we may proceed with 2 days of IV steroids followed by an oral prednisone taper thereafter. Risks/benefits discussed with patient and he again emphasized desire to only proceed with IV steroids. Review of Systems Constitutional: Denies: chills, fever. EENTM: Denies: blurred vision, visual changes, hearing changes. Cardiovascular: Denies: chest pain, palpitations, peripheral edema. Respiratory: Denies: cough, short of breath. Gastrointestinal: Denies: abdominal pain, nausea, vomiting. Genitourinary: Denies: dysuria, hematuria. Musculoskeletal: Denies: back pain, joint pain. Skin: Denies: lesions, rash. Neurological/Psychological: Reports: numbness, paresthesia, tingling. Denies: confusion, headache, unable to move lower ext, unable to move upper ext, weakness. Hematologic/Endocrine: Denies: bruising, bleeding. Objective Last 24 Hrs of Vital Signs/I&O Vital Signs Date Time Temp Pulse Resp B/P Pulse O2 O2 Flow FiO2 Ox Delivery Rate 06/12 0825 97.6 91 20 132/70 95 06/12 0731 97.5 80 18 06/11 1637 98.0 68 18 132/90 97 Room Air 06/11 1408 Room Air Intake & Output 06/12 1600 06/12 0800 06/12 0000 Intake Total 240 300 490 Output Total Balance 240 300 490 Intake, IV 10 Intake, Oral 240 300 480 Physical Exam General Appearance: Alert, Oriented X3, Cooperative, No Acute Distress Skin: No Rashes, No Significant Lesion HEENT: Atraumatic, PERRLA, EOMI, Mucous Membr. moist/pink Neck: Supple, +2 Carotid Pulse wo Bruit Lymphatic: Cervical nl Cardiovascular: Regular Rate, Normal S1, Normal S2, No Murmurs Lungs: Clear to Auscultation, Normal Air Movement Abdomen: Normal Bowel Sounds, Soft, No Tenderness Neurological: Normal Speech, Strength at 5/5 X4 Ext, Normal Tone, Sensation Intact, Cranial Nerves 3-12 NL Extremities: No Clubbing, No Cyanosis, No Edema Current Medications: Current Medications Sig/Jarrod Start time Last Medication Dose Route Stop Time Status Admin Acetaminophen 650 MG Q6P PRN 06/10 2044 AC PO Ergocalciferol 50,000 IU ONCE A WEEK 06/12 1000 AC PO Fenofibrate 145 MG DAILY 06/11 1000 AC 06/12 PO 0925 Gabapentin 100 MG Q8 06/11 1400 AC 06/12 PO 0644 Ibuprofen 600 MG Q6P PRN 06/10 2044 AC 06/11 PO 0848 Influenza Virus 0.5 ML ONCE ONE 06/12 1000 DC Vaccine IM 06/12 1001 Methylprednisolone 1,000 MG DAILY 06/12 1000 CAN Dextrose/Water 1,000 ML IV 06/15 0500 Methylprednisolone 1,000 MG DAILY 06/12 1000 CAN Dextrose/Water 1,000 ML IV 06/13 1200 Methylprednisolone 1,000 MG DAILY 06/12 1000 AC Dextrose/Water 1,000 ML IV 06/13 1401 Omeprazole 40 MG DAILY AC 06/11 1602 AC 06/12 PO 0644 Oxycodone/ 2 TAB Q6P PRN 06/10 2044 AC 06/12 Acetaminophen PO 0645 Prednisone 60 MG DAILY 06/11 1331 DC 06/12 PO 0925 Orders Radiology Findings: EXAMINATION: MR BRAIN WITHOUT AND WITH CONTRAST MR CERVICAL SPINE WITHOUT AND WITH CONTRAST MR THORACIC SPINE WITHOUT AND WITH CONTRAST MR LUMBAR SPINE WITHOUT AND WITH CONTRAST CLINICAL INFORMATION: Bilateral lower extremity numbness and paresthesias. Rule out cord compression. Question stroke versus demyelinating disease. COMPARISON: None TECHNIQUE: MRI of the brain, cervical spine, thoracic spine, and lumbar spine was obtained using routine sequences before and after the intravenous administration of 10 mL of Gadavist. FINDINGS: BRAIN: There are scattered T2 hyperintense lesions in the centrum semiovale, deep, and periventricular white matter of both hemispheres. On postcontrast imaging, several white matter lesions demonstrate nodular enhancement. A larger flame-shaped 2 x 1.2 cm lesion on the T2 FLAIR acquisition demonstrates ring enhancement, measuring 1 x 0.7 cm in size. There are approximately 8-9 enhancing white matter lesions. The corpus callosum appears normal. The brainstem and cerebellum are normal in appearance. The gradient refocused acquisition is normal. No acute ischemic changes are present on the diffusion-weighted acquisition. Aforementioned T2 bright lesions demonstrate shine-through phenomenon without restricted diffusion. There are no extra-axial fluid collections. The craniovertebral junction and marrow signal are normal. The major intracranial flow-voids at the level of the [place] are preserved. There is no abnormal mass effect or midline shift. There is a small retention cyst in the right maxillary sinus. Mild mucosal thickening noted elsewhere in the paranasal sinuses. There is a vtha-ph-siulszgi amount of fluid in the right mastoid air cells and right middle ear cavity. CERVICAL SPINE: No cervical cord lesions are identified. There is no syrinx. No intradural extramedullary or epidural soft tissue abnormality is seen. The marrow signal is fairly homogeneous. There is mild disc space narrowing with endplate spurring at the C6-C7 level. No pathologic intramedullary or leptomeningeal enhancement seen. The paraspinal soft tissues are normal. Left-sided uncovertebral joint spurring is noted at C2-C3 with very mild left foraminal encroachment. There is a mild disc bulge at C5-C6 with minimal impression upon the ventral thecal sac. At the C6-C7 level, a disc-osteophyte complex flattens the ventral thecal sac and contributes to moderate left foraminal narrowing. There is no central canal stenosis. THORACIC SPINE: At the T7 level, there is an ovoid lesion spanning the length of the vertebral body within the central aspect of the cord which measures 2 cm CC by 0.5 x 0.5 cm in size in the axial plane. The lesion demonstrates a mild amount of enhancement on postcontrast imaging as well. No additional cord lesions are identified. There is no syrinx. There is no abnormal leptomeningeal enhancement. The discs are well hydrated. There are no disc protrusions. The central canal and neural foramina are widely patent. LUMBAR SPINE: The marrow signal is homogeneous. The discs are well hydrated. There are no disc protrusions. The central canal is widely patent. The conus tip is normal. The cauda equina nerve roots are unremarkable. There is no pathologic leptomeningeal enhancement on postcontrast imaging. There is a small fatty filum present. The paraspinal soft tissues are normal. At the L3-L4 level, there is a generalized disc bulge and right foraminal disc protrusion contributing to mild foraminal encroachment. A small left foraminal disc protrusion and endplate spurring are visible at the L5-S1 level. The S1 vertebra is transitional and partially lumbarized. IMPRESSION: Imaging findings are most indicative for demyelinating disease as can be seen in the setting of multiple sclerosis. Multiple enhancing subcentimeter lesions in the brain parenchyma. Mildly enhancing ovoid lesion within the midthoracic cord at the T7 level. Zeuw-hu-pofcroxx spondylosis at C6-C7 with moderate left foraminal narrowing. No significant thoracic disc disease. Focal right foraminal disc protrusion at L3-L4 with mild encroachment. Assessment/Plan Assessment: Mr. Lugo is a pleasant 41 year old male with PMH HLD and anxiety who presented with a 6 day course of progressive lower extremity paresthesias. About 6 weeks ago, patient experienced an upper respiratory infection with cough and congestion for which he received augmentin. He then noted that 6 days ago, his right big toe became numb. This numbness slowly ascended to his whole right lower extremity and included his left lower extremity also. On time of presentation, patient admitted to allodynia with "pins and needles". He denied any loss of bowel or bladder control, nausea, vomiting, chest pain, myalgias, arthralgias, dizziness, headache, change in vision, loss of consciousness, fall, or shortness of breath. He did admit to inability to feel the passage of a bowel movement, weak urinary stream and difficulty ambulating secondary to paresthesias. In the ED: Vital signs showed T 97.1, HR 105, RR 16, BP 139/96 and O2 saturation of 97% on RA. Labs showed a normal CBC and unremarkable BEP. A head CT was done that showed no acute intracranial abnormalities. A lumbar CT showed diffuse annular disc bulge with possible superimposed central disc protrusion at L4-L5 and mild narrowing of the canal. At L2-L3, there is a lateral disc protrusion that may "abut the extraforaminal right L2 nerve." Patient is admitted to the telemetry floor and the following is the management: 1. Ascending paresthesias with allodynia * Head CT shows no acute intracranial pathology, no noted motor deficits appreciated * Head MRI done today suggestive of demyelinating disease that can be seen in multiple sclerosis (multiple enhancing subcentimeter lesions in parenchyma) as well as ovid T7 enhanding lesion * RPR and HIV testing negative, Lyme disease Ab/HgA1C pending, f/u results * Continue neurochecks, vital per protocol * Neurology consult with Dr. Motley placed and appreciated * Patient requesting only IV steroids as treatment, Dr. Motley contacted and he suggested though his primary plan would be oral steroids, we may proceed with 1 dose IV steroids today and 1 day IV steroids tomorrow with discharge tomorrow on oral prednisone taper * Continue PPI while patint is on steroids * Gabapentin 100 mg TID added to his regimen for paresthesias, will increase to 300 mg PO TID tomorrow * Pain management with tylenol for mild, motrin for moderate and percocet for severe pain * Patient will require close clinical follow up with Dr. Motley for continued management of MS * PT consult placed due antalgic gait, suggest home self care 2. History of HLD * Continue fenofibrate 145 mg PO daily 3. Influenza vaccination * Patient given flu shot on 06/12/16 4. Low Vit D * Vit D level checked and very low to 8 * Will repeat with 50,0000 ergocalciferol 1 x/wk x 4 weeks then he will repeat level as an outpatient and follow up with his PCP for continued care FULL CODE DVTP: ALPS Regular diet Mild to severe pain pathway Problem List: 1. Distal paresthesia 2. Demyelinating changes in brain Pain Ratin Pain Location: n/a Pain Goal: Remain pain free Pain Plan: Mild pain pathway. Tomorrow's Labs & Rationales: None.
--- NOTE | 2016-06-12 07:07 | Discharge Summary ---
See Addendum Visit Information Visit Dates Admission Date: 06/10/16 Discharge Date: 06/14/16 Hospital Course Course Attending Physician: ARACELIS FLORES M.D Primary Care Physician: KENYA HAYWARD MD Consulting Request: Consulting Specialty: Neurology Consulting Physician: Dr. Motley Reason for Consult: Demyelinating disease, lower extremity paresthesias Hospital Course: Mr. Lugo is a 41 year old male with PMH HLD and anxiety who presented with a 6 day course of progressive lower extremity paresthesias. About 6 weeks prior to admission, patient experienced an upper respiratory infection with cough and congestion for which he received augmentin. He then noted that about 6 days prior to presentation to the ED, his right big toe became numb. This numbness slowly ascended to include his whole right lower extremity and included his left lower extremity as well. On time of presentation, patient admitted to allodynia with "pins and needles" of both legs. He denied any loss of bowel or bladder control, nausea, vomiting, chest pain, myalgias, arthralgias , dizziness, headache, change in vision, loss of consciousness, fall, or shortness of breath. He did admit to inability to feel the passage of a bowel movement, weak urinary stream and difficulty ambulating secondary to paresthesias. In the ED: Vital signs showed T 97.1, HR 105, RR 16, BP 139/96 and O2 saturation of 97% on RA. Labs showed a normal CBC and unremarkable BEP. A head CT was done that showed no acute intracranial abnormalities. A lumbar CT showed diffuse annular disc bulge with possible superimposed central disc protrusion at L4-L5 and mild narrowing of the canal. At L2-L3, there is a lateral disc protrusion that may "abut the extraforaminal right L2 nerve." Physical exam on admission showed: HEENT- atraumatic Cardiovascular, lung, abdominal exam- unremarkable Neuro exam-AAOx3, no acute distress Cranial nerves II through XII grossly intact Power 5 out of 5 in flexors, extensors, abductors, adductors in all 4 extremities Reflexes 1+ in bilateral upper extremities; 2+ in bilateral lower extremities No cerebellar signs, vjbmaw-sr-fwcy testing intact, visual marti intact, visual acuity is intact Sensation in BL upper extremities/lower extremities intact, however lower extremities very mildly diminished. Normal rectal sphincter tone (guaiac negative) Positive Romberg to the right Moderately stable gait, stepping gait noted bilaterally, with right-sided preference Patient was admitted to the telemetry floor and the following was addressed: 1. Lower extremity paresthesias: Head CT done on admission showed no acute intracranial pathology and neurological testing on admission was negative for muscular weakness/fatigue. Concern was for variant of [employer] with recent URI and current presentation with ascending symptoms, however due to pure sensory complaints and no lower motor neuron findings, demyelinating disease versus transvere myelitis were high on the differential. HIV and RPR were checked and found to be nonreactive. Head MRI was performed following admission and was indicative of demyelinating disease with multiple subcentimeter lesions in the brain parencyma as well as at T7. Neurology consult was placed and he suggested 3 days of IV steroids (1 gram IV solumedrol x 3 days). He was then started on a steroid taper and should continue this in the outpatient setting. 300 mg PO TID gabapentin was also added for neuropathic discomfort and he may continue this as an outpatient. A PPI was added for gastroprotective properties in the setting of high dose steroids. Patient should follow up with Dr. David very closely after dicharge as he will require immunomodulatory therapy for MS. 2. HLD: Patient was continued on his home fenofibrate 145 mg PO daily and should continue this medication on discharge. 3. Low vitamin D: Vitamin D level checked as low levels are associated with exacerbation of MS. Vitamin D level found to be 8.0. He was given a one time dose of 50,000 ergocalciferol and he was discharged with 3 more doses to be taken once a week for 3 more weeks. Patient should follow up with his PCP who can monitor his vitamin D levels (preferably in about 4 weeks) and continue supplementation as needed. 4. Code status: FULL 5. DVT Prophylaxis: Patient refused SC heparin, early ambulation. 6. Diet: Regular Allergies: Coded Allergies: No Known Allergies (07/17/15) Significant Procedures: CT LUMBAR SPINE WITH CONTRAST CLINICAL INFORMATION: Bilateral leg paresthesias to rule out transverse myelitis. COMPARISON: None available. TECHNIQUE: A CT acquisition of the lumbar spine is obtained following the administration of 95 mL of Optiray 320 intravenous contrast. FINDINGS: 5 nonrib-bearing lumbar-type vertebral bodies. Lumbar alignment is normal. There are no acute fractures and there are no acute subluxations. Vertebral body heights are maintained. No osteolytic and no osteoblastic lesions. Disc spaces are preserved. There is mild disc calcification at L1-L2. There are no significant soft tissue findings. At L2-L3 there is a right lateral disc protrusion that may abut the extraforaminal right L2 nerve root. At L4-L5 there is a diffuse annular disc bulge with a possible superimposed shallow central disc protrusion. Suspect mild narrowing of the central canal. Moderate foraminal stenosis bilaterally. Disc may abut the traversing nerve roots, not well assessed on CT. The remaining lumbar disc contours appear normal. IMPRESSION: - CT is not diagnostic for assessing for abnormal enhancement within the spinal cord and along the cauda equina nerve roots. If clinical suspicion persists for transverse myelitis, a MRI of the spine would be recommended for further assessment. - At L4-L5 there is a diffuse annular disc bulge with a possible superimposed shallow central disc protrusion. Suspect mild narrowing of the central canal. Moderate foraminal stenosis bilaterally. Disc may abut the traversing nerve roots, not well assessed on CT. - At L2-L3 there is a right lateral disc protrusion that may abut the extraforaminal right L2 nerve root. EXAMINATION: CT HEAD WITHOUT CONTRAST CLINICAL INFORMATION: Subacute bilateral lower extremity weakness. Family history of [employer] syndrome. Evaluate for acute stroke. COMPARISON: None. TECHNIQUE: Contiguous axial imaging was performed from the skull base to vertex without intravenous administration of contrast. DLP: 529 mGy-cm FINDINGS: No acute intracranial abnormality. No acute intracranial hemorrhage, mass or mass effect or abnormal extra-axial fluid collections. The density within the dural venous sinuses is within normal limits. The ventricles are normal in size, without hydrocephalus. There are no focal areas of hypoattenuation within a vascular distribution to suggest acute transcortical ischemia. The basilar cisterns are patent. No acute calvarial abnormality is identified. Soft tissues appear unremarkable. The imaged paranasal sinuses and mastoid air cells are well aerated. IMPRESSION: No acute intracranial abnormality. This critical result was discussed with Dr. Waller at 10:10 PM on 06/10/2016 and it was ascertained that the content and urgency of the report was understood at the time of direct communication. EXAMINATION: MR BRAIN WITHOUT AND WITH CONTRAST MR CERVICAL SPINE WITHOUT AND WITH CONTRAST MR THORACIC SPINE WITHOUT AND WITH CONTRAST MR LUMBAR SPINE WITHOUT AND WITH CONTRAST CLINICAL INFORMATION: Bilateral lower extremity numbness and paresthesias. Rule out cord compression. Question stroke versus demyelinating disease. COMPARISON: None TECHNIQUE: MRI of the brain, cervical spine, thoracic spine, and lumbar spine was obtained using routine sequences before and after the intravenous administration of 10 mL of Gadavist. FINDINGS: BRAIN: There are scattered T2 hyperintense lesions in the centrum semiovale, deep, and periventricular white matter of both hemispheres. On postcontrast imaging, several white matter lesions demonstrate nodular enhancement. A larger flame-shaped 2 x 1.2 cm lesion on the T2 FLAIR acquisition demonstrates ring enhancement, measuring 1 x 0.7 cm in size. There are approximately 8-9 enhancing white matter lesions. The corpus callosum appears normal. The brainstem and cerebellum are normal in appearance. The gradient refocused acquisition is normal. No acute ischemic changes are present on the diffusion-weighted acquisition. Aforementioned T2 bright lesions demonstrate shine-through phenomenon without restricted diffusion. There are no extra-axial fluid collections. The craniovertebral junction and marrow signal are normal. The major intracranial flow-voids at the level of the [place] are preserved. There is no abnormal mass effect or midline shift. There is a small retention cyst in the right maxillary sinus. Mild mucosal thickening noted elsewhere in the paranasal sinuses. There is a rwnd-jo-trbjgolj amount of fluid in the right mastoid air cells and right middle ear cavity. CERVICAL SPINE: No cervical cord lesions are identified. There is no syrinx. No intradural extramedullary or epidural soft tissue abnormality is seen. The marrow signal is fairly homogeneous. There is mild disc space narrowing with endplate spurring at the C6-C7 level. No pathologic intramedullary or leptomeningeal enhancement seen. The paraspinal soft tissues are normal. Left-sided uncovertebral joint spurring is noted at C2-C3 with very mild left foraminal encroachment. There is a mild disc bulge at C5-C6 with minimal impression upon the ventral thecal sac. At the C6-C7 level, a disc-osteophyte complex flattens the ventral thecal sac and contributes to moderate left foraminal narrowing. There is no central canal stenosis. THORACIC SPINE: At the T7 level, there is an ovoid lesion spanning the length of the vertebral body within the central aspect of the cord which measures 2 cm CC by 0.5 x 0.5 cm in size in the axial plane. The lesion demonstrates a mild amount of enhancement on postcontrast imaging as well. No additional cord lesions are identified. There is no syrinx. There is no abnormal leptomeningeal enhancement. The discs are well hydrated. There are no disc protrusions. The central canal and neural foramina are widely patent. LUMBAR SPINE: The marrow signal is homogeneous. The discs are well hydrated. There are no disc protrusions. The central canal is widely patent. The conus tip is normal. The cauda equina nerve roots are unremarkable. There is no pathologic leptomeningeal enhancement on postcontrast imaging. There is a small fatty filum present. The paraspinal soft tissues are normal. At the L3-L4 level, there is a generalized disc bulge and right foraminal disc protrusion contributing to mild foraminal encroachment. A small left foraminal disc protrusion and endplate spurring are visible at the L5-S1 level. The S1 vertebra is transitional and partially lumbarized. IMPRESSION: Imaging findings are most indicative for demyelinating disease as can be seen in the setting of multiple sclerosis. Multiple enhancing subcentimeter lesions in the brain parenchyma. Mildly enhancing ovoid lesion within the midthoracic cord at the T7 level. Qtkh-yi-efmhjwng spondylosis at C6-C7 with moderate left foraminal narrowing. No significant thoracic disc disease. Focal right foraminal disc protrusion at L3-L4 with mild encroachment. This critical result was discussed with Dr. Inman at 1:12 PM on 06/11/2016 and it was ascertained that the content and urgency of the report was understood at the time of direct communication. Disposition Summary Disposition Principal Diagnosis: Demyelinating disease Additional Diagnosis: HLD Low Vitamin D Discharge Disposition: home or self care Discharge Instructions General Discharge Information Code Status: Full Code Patient's Diet: Regular diet. Patient's Activity: Self-limited, as tolerated. Follow-Up Instructions/Appts: Please follow up with Dr. Motley within 7 days of discharge for continued care. Please take all medications as directed. Please follow up with your PCP within 1 week of discharge. Medications at Discharge Discharge Medications: Continue taking these medications: Fenofibrate Nanocrystallized (Fenofibrate) 145 MG TABLET 1 Tablet ORAL DAILY Qty = 30 Comments: Last Taken: 06/13/16 Time: 5:45 PM Start taking the following new medications: Prednisone (Prednisone) 10 MG TABLET 0 ORAL See Instructions Qty = 87 No Refills Instructions: 2/26/17-06/20/16 TAKE 6 TABS DAILY 06/21/16 TAKE 5 TABS DAILY 06/22/16 TAKE 4 TABS DAILY 06/23/16 TAKE 3 TABS DAILY 06/24/16 TAKE 2 TABS DAILY 06/25/16 TAKE 1 TAB DAILY THEN STOP Comments: NOT TAKEN IN THE HOSPITAL Pantoprazole Sodium (Pantoprazole Sodium) 40 MG TABLET.DR 1 Tablet ORAL DAILY Qty = 30 No Refills Gabapentin (Neurontin) 300 MG CAPSULE 1 Capsule ORAL THREE TIMES DAILY Qty = 90 No Refills Ergocalciferol (Vitamin D2) (Vitamin D2) 50,000 UNIT CAPSULE 1 Capsule ORAL Q THURSDAY Qty = 3 No Refills Copies To: ARACELIS FLORES M.D; KIKI MONTES,JULES HAYWARD MD,KENYA Cagle MD Review Statement Documenting Attending: ARACELIS FLORES M.D
[2016-06-12 08:25] VITALS: BP 132/70
[2016-06-12 10:00] VITALS: BP 120/70
[2016-06-12] MEDS ORDERED: NEURONTIN300 M1 PO (10:20)
--- NOTE | 2016-06-12 13:31 | PN- Neurology ---
Subjective Subjective: Tingling of lower extremities continue. He has been able to ambulate to the bathroom without difficulty. There have been no additional symptoms since his consultation . He did voice some concern as to being started on oral steroids as opposed to an initial, parenteral dosing. This is being addressed. Objective Vital Signs and I&Os Vital Signs Date Time Temp Pulse Resp B/P Pulse O2 O2 Flow FiO2 Ox Delivery Rate 06/12 1000 97.2 76 18 120/70 06/12 0825 97.6 91 20 132/70 95 06/12 0731 97.5 80 18 06/11 1637 98.0 68 18 132/90 97 Room Air 06/11 1408 Room Air Intake & Output 06/12 1600 06/12 0800 06/12 0000 06/11 1600 06/11 0800 06/11 0000 Intake Total 480 300 490 480 650 Output Total 300 Balance 180 300 490 480 650 Intake, IV 10 Intake, Oral 480 300 480 480 650 Output, Urine 300 Patient 220 lb Weight Awake, alert and in no acute distress. Speech was fluent. There was no dysarthria. Motor examination showed no focal weakness. Deep tendon reflexes were brisk at the knees however plantar responses were flexor. There was no ankle clonus. He reported altered light touch over the lower extremities bilaterally, both proximal and distal. Current Medications: Current Medications Sig/Jarrod Start time Last Medication Dose Route Stop Time Status Admin Acetaminophen 650 MG Q6P PRN 06/10 2044 AC PO Ergocalciferol 50,000 IU ONCE A WEEK 06/12 1000 AC 06/12 PO 1313 Fenofibrate 145 MG DAILY 06/11 1000 AC 06/12 PO 0925 Gabapentin 100 MG Q8 06/11 1400 AC 06/12 PO 0644 Ibuprofen 600 MG Q6P PRN 06/10 2044 AC 06/11 PO 0848 Influenza Virus 0.5 ML ONCE ONE 06/12 1000 DC Vaccine IM 06/12 1001 Methylprednisolone 1,000 MG DAILY 06/12 1000 CAN Dextrose/Water 1,000 ML IV 06/15 0500 Methylprednisolone 1,000 MG DAILY 06/12 1000 CAN Dextrose/Water 1,000 ML IV 06/13 1200 Methylprednisolone 1,000 MG DAILY 06/12 1000 AC 06/12 Dextrose/Water 1,000 ML IV 06/13 1401 1058 Omeprazole 40 MG DAILY AC 06/11 1602 AC 06/12 PO 0644 Oxycodone/ 2 TAB Q6P PRN 06/10 2044 AC 06/12 Acetaminophen PO 0645 Patient Medication 1 ED .STK-MED ONE 06/12 1137 DC Teaching ED 06/12 1138 Prednisone 60 MG DAILY 06/11 1331 DC 06/12 PO 0925 Assessment/Plan Assessment: Demyelinating disease. He presents with an initial, clinical presentation of thoracic myelopathy. Plan: The patient will receive 2 doses of Solu-Medrol 1 g intravenously per day. I would then discharge him on prednisone 60 mg per day for 1 week with a rapid taper over the next 3-4 days. We plan to see the patient in the office setting in 2-3 weeks at which time a thorough discussion of immunomodulatory therapy will be conducted
[2016-06-12] MEDS ORDERED: VITAMIN D250000 UNIT PO (13:57)
[2016-06-12 14:00] VITALS: BP 130/70
[2016-06-12 16:43] VITALS: BP 148/80
[2016-06-13 00:30] VITALS: BP 132/97
--- NOTE | 2016-06-13 06:48 | PN- Housestaff ---
See Addendum Subjective Follow-up For: Demyelinating disease Bilateral lower extremity paresthesias Low Vit D Tele-Events Since Last Visit: Off tele. Subjective: Patient seen and examined at bedside this AM. He was laying comfortably in bed watching a video on management of multiple sclerosis. Patient reports that the cramping sensation in his feet has much improved, though the numbness/tingling is persistent and to the level of his belt-line. Patient reports he is ambulating well and is not unsteady on his feet. Review of Systems Constitutional: Denies: chills, diaphoresis, fever, malaise. EENTM: Denies: blurred vision, visual changes, eye pain, hearing changes. Cardiovascular: Denies: chest pain, palpitations, syncope. Respiratory: Denies: cough, short of breath. Gastrointestinal: Denies: abdominal pain, bloating, nausea, vomiting. Genitourinary: Denies: dysuria, hematuria, hesitation, urgency. Musculoskeletal: Denies: back pain, joint pain. Skin: Denies: rash. Neurological/Psychological: Reports: numbness, paresthesia, tingling. Denies: confusion, headache, pre- existing deficit, unable to move lower ext, unable to move upper ext, weakness. Hematologic/Endocrine: Denies: bruising, bleeding. Immunologic/Allergic: Denies: splenectomy. Objective Last 24 Hrs of Vital Signs/I&O Vital Signs Date Time Temp Pulse Resp B/P Pulse O2 O2 Flow FiO2 Ox Delivery Rate 06/13 0030 97.8 94 20 132/97 92 06/12 1643 98.1 120 22 148/80 92 06/12 1400 97.8 80 18 130/70 06/12 1000 97.2 76 18 120/70 06/12 0825 97.6 91 20 132/70 95 Intake & Output 06/13 0800 06/13 0000 06/12 1600 Intake Total 635 535 2981 Output Total 300 Balance 300 400 930 Intake, IV 750 Intake, Oral 300 400 480 Output, Urine 300 Physical Exam General Appearance: Alert, Oriented X3, Cooperative, No Acute Distress Skin: No Rashes, No Breakdown, No Significant Lesion HEENT: Atraumatic, PERRLA, EOMI, Mucous Membr. moist/pink Neck: Supple, No thryomegaly, +2 Carotid Pulse wo Bruit Lymphatic: Cervical nl Cardiovascular: Regular Rate, Normal S1, Normal S2, No Murmurs Lungs: Clear to Auscultation, Normal Air Movement Abdomen: Normal Bowel Sounds, Soft, No Tenderness, No Hepatospenomegaly, No Masses Neurological: Normal Gait, Normal Speech, Strength at 5/5 X4 Ext, Normal Tone, Cranial Nerves 3-12 NL Extremities: No Clubbing, No Cyanosis, No Edema, No Tenderness/Swelling Vascular: Pulses Symmetrical Current Medications: Current Medications Sig/Jarrod Start time Last Medication Dose Route Stop Time Status Admin Acetaminophen 650 MG Q6P PRN 06/10 2044 AC PO Ergocalciferol 50,000 IU ONCE A WEEK 06/12 1000 AC 06/12 PO 1313 Fenofibrate 145 MG DAILY 06/11 1000 AC 06/12 PO 0925 Gabapentin 300 MG Q8 06/13 0600 AC 06/13 PO 0628 Gabapentin 100 MG Q8 06/11 1400 DC 06/12 PO 06/13 0559 2151 Ibuprofen 600 MG Q6P PRN 06/10 2044 AC 06/11 PO 0848 Influenza Virus 0.5 ML ONCE ONE 06/12 1000 DC Vaccine IM 06/12 1001 Methylprednisolone 1,000 MG DAILY 06/12 1000 CAN Dextrose/Water 1,000 ML IV 06/15 0500 Methylprednisolone 1,000 MG DAILY 06/12 1000 CAN Dextrose/Water 1,000 ML IV 06/13 1200 Methylprednisolone 1,000 MG DAILY 06/12 1000 AC 06/12 Dextrose/Water 1,000 ML IV 06/13 1401 1058 Omeprazole 40 MG DAILY AC 06/11 1602 AC 06/13 PO 0628 Oxycodone/ 2 TAB Q6P PRN 06/10 2044 AC 06/13 Acetaminophen PO 0628 Patient Medication 1 ED .STK-MED ONE 06/12 1137 MI Teaching ED 06/12 1138 Prednisone 60 MG DAILY 06/11 1331 MI 06/12 PO 0925 Orders Radiology Findings: EXAMINATION: MR BRAIN WITHOUT AND WITH CONTRAST MR CERVICAL SPINE WITHOUT AND WITH CONTRAST MR THORACIC SPINE WITHOUT AND WITH CONTRAST MR LUMBAR SPINE WITHOUT AND WITH CONTRAST CLINICAL INFORMATION: Bilateral lower extremity numbness and paresthesias. Rule out cord compression. Question stroke versus demyelinating disease. COMPARISON: None TECHNIQUE: MRI of the brain, cervical spine, thoracic spine, and lumbar spine was obtained using routine sequences before and after the intravenous administration of 10 mL of Gadavist. FINDINGS: BRAIN: There are scattered T2 hyperintense lesions in the centrum semiovale, deep, and periventricular white matter of both hemispheres. On postcontrast imaging, several white matter lesions demonstrate nodular enhancement. A larger flame-shaped 2 x 1.2 cm lesion on the T2 FLAIR acquisition demonstrates ring enhancement, measuring 1 x 0.7 cm in size. There are approximately 8-9 enhancing white matter lesions. The corpus callosum appears normal. The brainstem and cerebellum are normal in appearance. The gradient refocused acquisition is normal. No acute ischemic changes are present on the diffusion-weighted acquisition. Aforementioned T2 bright lesions demonstrate shine-through phenomenon without restricted diffusion. There are no extra-axial fluid collections. The craniovertebral junction and marrow signal are normal. The major intracranial flow-voids at the level of the [place] are preserved. There is no abnormal mass effect or midline shift. There is a small retention cyst in the right maxillary sinus. Mild mucosal thickening noted elsewhere in the paranasal sinuses. There is a [id number] amount of fluid in the right mastoid air cells and right middle ear cavity. CERVICAL SPINE: No cervical cord lesions are identified. There is no syrinx. No intradural extramedullary or epidural soft tissue abnormality is seen. The marrow signal is fairly homogeneous. There is mild disc space narrowing with endplate spurring at the C6-C7 level. No pathologic intramedullary or leptomeningeal enhancement seen. The paraspinal soft tissues are normal. Left-sided uncovertebral joint spurring is noted at C2-C3 with very mild left foraminal encroachment. There is a mild disc bulge at C5-C6 with minimal impression upon the ventral thecal sac. At the C6-C7 level, a disc-osteophyte complex flattens the ventral thecal sac and contributes to moderate left foraminal narrowing. There is no central canal stenosis. THORACIC SPINE: At the T7 level, there is an ovoid lesion spanning the length of the vertebral body within the central aspect of the cord which measures 2 cm CC by 0.5 x 0.5 cm in size in the axial plane. The lesion demonstrates a mild amount of enhancement on postcontrast imaging as well. No additional cord lesions are identified. There is no syrinx. There is no abnormal leptomeningeal enhancement. The discs are well hydrated. There are no disc protrusions. The central canal and neural foramina are widely patent. LUMBAR SPINE: The marrow signal is homogeneous. The discs are well hydrated. There are no disc protrusions. The central canal is widely patent. The conus tip is normal. The cauda equina nerve roots are unremarkable. There is no pathologic leptomeningeal enhancement on postcontrast imaging. There is a small fatty filum present. The paraspinal soft tissues are normal. At the L3-L4 level, there is a generalized disc bulge and right foraminal disc protrusion contributing to mild foraminal encroachment. A small left foraminal disc protrusion and endplate spurring are visible at the L5-S1 level. The S1 vertebra is transitional and partially lumbarized. IMPRESSION: Imaging findings are most indicative for demyelinating disease as can be seen in the setting of multiple sclerosis. Multiple enhancing subcentimeter lesions in the brain parenchyma. Mildly enhancing ovoid lesion within the midthoracic cord at the T7 level. [id number] spondylosis at C6-C7 with moderate left foraminal narrowing. No significant thoracic disc disease. Focal right foraminal disc protrusion at L3-L4 with mild encroachment. Assessment/Plan Assessment: Mr. Lugo is a pleasant 41 year old male with PMH HLD and anxiety who presented with a 6 day course of progressive lower extremity paresthesias. About 6 weeks ago, patient experienced an upper respiratory infection with cough and congestion for which he received augmentin. He then noted that 6 days ago, his right big toe became numb. This numbness slowly ascended to his whole right lower extremity and included his left lower extremity also. On time of presentation, patient admitted to allodynia with "pins and needles". He denied any loss of bowel or bladder control, nausea, vomiting, chest pain, myalgias, arthralgias, dizziness, headache, change in vision, loss of consciousness, fall, or shortness of breath. He did admit to inability to feel the passage of a bowel movement, weak urinary stream and difficulty ambulating secondary to paresthesias. In the ED: Vital signs showed T 97.1, HR 105, RR 16, BP 139/96 and O2 saturation of 97% on RA. Labs showed a normal CBC and unremarkable BEP. A head CT was done that showed no acute intracranial abnormalities. A lumbar CT showed diffuse annular disc bulge with possible superimposed central disc protrusion at L4-L5 and mild narrowing of the canal. At L2-L3, there is a lateral disc protrusion that may "abut the extraforaminal right L2 nerve." Patient is admitted to the telemetry floor and the following is the management: 1. Ascending paresthesias with allodynia * Head CT shows no acute intracranial pathology, no noted motor deficits appreciated again today * Head MRI done on 06/12/16 suggestive of demyelinating disease that can be seen in multiple sclerosis (multiple enhancing subcentimeter lesions in parenchyma) as well as ovid T7 enhancing lesion * RPR and HIV testing negative, Lyme disease ab pending, HgA1C normal to 5.1 * Continue neurochecks, vital per protocol * Neurology consult with Dr. Motley placed and appreciated * Patient to receive his second dose of IV steroids today with discharge on oral prednisone taper this afternoon * Continue PPI while patint is on steroids * Gabapentin increased to 300 mg PO TID today * Pain management with tylenol for mild, motrin for moderate and 2 tab percocet for severe pain * Patient requesting follow up with Dr. David after discharge, will provide referral * PT consult placed due antalgic gait, suggest home self care 2. History of HLD * Continue fenofibrate 145 mg PO daily 3. Influenza vaccination * Patient given flu shot on 06/12/16 4. Low Vit D * Vit D level checked and very low to 8 * Will repeat with 50,0000 ergocalciferol 1 x/wk x 4 weeks then he will repeat level as an outpatient and follow up with his PCP for continued care/further vit d supplementation FULL CODE DVTP: ALPS Regular diet Mild to severe pain pathway Problem List: 1. Distal paresthesia 2. Demyelinating changes in brain Pain Ratin Pain Location: n/a Pain Goal: Remain pain free Pain Plan: Tylenol for mild pain, motrin for moderate and 2 tab percocet for severe pain. Tomorrow's Labs & Rationales: None. Consulting Request: Consulting Specialty: Neurology Consulting Physician: Dr. Motley Reason for Consult: Demyelinating disease, lower extremity paresthesias
[2016-06-13 07:56] VITALS: BP 132/94
[2016-06-13 15:55] VITALS: BP 154/90
[2016-06-14 00:09] VITALS: BP 130/88
[2016-06-14 08:45] VITALS: BP 138/72
--- NOTE | 2016-06-14 09:22 | PN- Housestaff ---
Subjective Follow-up For: multiple sclerosis HLD Subjective: Seen and examined patient offers no complaints, states that he is walking without any issues. Is ready to go home. Review of Systems Constitutional: Denies: chills, diaphoresis, fever, malaise, weakness, unexplained weight loss. Cardiovascular: Denies: chest pain, edema, orthopena, palpitations, peripheral edema, syncope. Respiratory: Denies: cough, hemoptysis, orthopnea, short of breath, sputum production, stridor, wheezing. Objective Last 24 Hrs of Vital Signs/I&O Vital Signs Date Time Temp Pulse Resp B/P Pulse O2 O2 Flow FiO2 Ox Delivery Rate 06/14 0845 98.0 86 20 138/72 94 Room Air 06/14 0009 97.6 68 12 130/88 94 Room Air 06/13 1555 98.1 110 18 154/90 95 Room Air Intake & Output 06/14 1600 06/14 0800 06/14 0000 Intake Total 250 760 Output Total Balance 250 760 Intake, IV 0 10 Intake, Oral 250 750 Number 0 0 Bowel Movements Physical Exam General Appearance: Alert, Oriented X3, Cooperative, No Acute Distress Cardiovascular: Regular Rate, Normal S1, Normal S2 Lungs: Clear to Auscultation, Normal Air Movement Abdomen: Normal Bowel Sounds, Soft Assessment/Plan Assessment: 41 year gentleman with PMH HLD and anxiety who presented with a 6 day course of progressive lower extremity paresthesias. Head CT was done that showed no acute intracranial abnormalities. A lumbar CT showed diffuse annular disc bulge with possible superimposed central disc protrusion at L4-L5 and mild narrowing of the canal. At L2-L3, there is a lateral disc protrusion that may "abut the extraforaminal right L2 nerve. Head MRI done on 06/12/16 suggestive of demyelinating disease that can be seen in multiple sclerosis. Problem list: multiple sclerosis Lipidemia Vitamin D deficiency Plan: * RPR and HIV testing negative, Lyme disease ab pending, HgA1C normal to 5.1 * Patient to receive his second dose of IV steroids today with discharge on oral prednisone taper this afternoon * Continue PPI while on steroids * On Gabapentin 300 mg PO TID today * Patient requesting follow up with Dr. David after discharge, will provide referral * PT consult placed due antalgic gait, suggest home self care 2. History of HLD * Continue fenofibrate 145 mg PO daily 3. Low Vit D * Vit D level 8 * Will be discharged on 50,0000 ergocalciferol 1 x/wk x 4 weeks and to repeat vitamin D levels and to follow up with his PCP for continued care/further vit d supplementation FULL CODE DVTP: ALPS Regular diet Stable for discharge today Problem List: 1. Demyelinating changes in brain 2. Hyperlipidemia 3. Vitamin D deficiency Pain Ratin Pain Location: Not applicable Pain Goal: Pain 4 or less Pain Plan: Current regimen Tomorrow's Labs & Rationales: None required Consulting Request: Consulting Specialty: Neurology Consulting Physician: Dr. Motley Reason for Consult: Demyelinating disease, lower extremity paresthesias
--- NOTE | 2016-06-14 11:05 | PN- Att Addend ---
Attending Addendum Attending Brief Note Patient similarly examined. Resting comfortably and not in any acute distress. He reports feeling much better today. He states that his prostate has actually improved. He reports that he is able to ambulate more confidently today. He has no focal deficits. Power is 5 over 5 in all extremities. He is in agreement to be discharged home today on continue prednisone as ordered. He will follow-up with the multiple sclerosis service as an outpatient. Patient is medically stable to discharge home today.
== END 2016-06-14 16:35 | DRG 60 ==
LOC: CANRESERV → ENRESERVDT → ENRESERVTM → ERH 14:45 → ERHI 19:27 → DELPENDDIS 19:27 → 1NO 19:27 → ENPENDDIS 19:27 → 1NO 21:36
PROVIDERS: Emergency Medicine; ADMIT Student in an Organized Health Care Education/Training Program
DX: G35 Multiple sclerosis (principal); E55.9 Vitamin D deficiency, unspecified; E78.5 Hyperlipidemia, unspecified; M47.892 Other spondylosis, cervical region; M51.26 Other intervertebral disc displacement, lumbar region; Z82.0 Family history of epilepsy and other diseases of the nervous system
CPT/HCPCS: 1NP; 6020; 70552; 72142; 72147; 72149; 86618; 70553; 72156; 72157; 72158; 87389; 93005; 93010; 97116-GO; 97161-GP; A9579; G0378; J1040; J1644; J7060; Q2036